=== PATIENT | male | born 1995 | race Caucasian/White ===

== ENCOUNTER 2017-01-31 05:59 | Emergency (ER) | payer OTHER ==
--- NOTE | 2017-01-31 07:01 | ED CLINICAL REPORT ---
Clinical Report - Physicians/Mid Levels [facility] [address] [place] [address] 01/31/2017 6:00 Patient: MICHELLE REID Time Seen: 06:04; initial patient contact. HISTORY OF PRESENT ILLNESS Chief Complaint: CHEST PAIN. This started about 4 days ago and is still present. The patient cannot recall the circumstances at the onset. It is described as burning and it is described as located in the central chest area and epigastric area. No radiation. At its maximum, severity described as moderate. When seen in the E.D., severity described as moderate. Modifying factors. Not worsened by anything. Not relieved by anything. No nausea, vomiting, difficulty breathing or diaphoresis. (Symptoms worse in the AM). Similar symptoms previously: None. Recent medical care: Not recently seen/assessed. REVIEW OF SYSTEMS No fever, chills, pedal edema or calf pain. He has had a cough. All systems otherwise negative, except as recorded above. PAST HISTORY Celiac Disease. Cynthia Thyroiditis. SURGERIES: Adenoidectomy. Appendectomy. Tonsillectomy. SOCIAL HISTORY Never smoker. History of drug use: marijuana. No alcohol use. ADDITIONAL NOTES The nursing notes have been reviewed. PHYSICAL EXAM Vital Signs: 01/31/2017 06:02 BP: 115/68. HR: 75. RR: 20. O2 saturation: 100%. Temp: 98.5 F. Pain level now: 8/10. Have been reviewed as normal. Appearance: Alert. Oriented X3. No acute distress. Eyes: Eyes normal inspection. ENT: Pharynx normal. CVS: Normal heart rate and rhythm. Heart sounds normal. Respiratory: No respiratory distress. Breath sounds normal. Chest nontender. Abdomen: Soft. Mild tenderness in the epigastric area. No guarding, rebound tenderness or Rodriguez's sign present. Bowel sounds normal. No organomegaly. No mass. Back: Normal external inspection. Skin: Skin warm and dry. Normal skin color. No rash. Extremities: No calf tenderness. No lower extremity edema. Neuro: Oriented X 3. No motor deficit. PROGRESS AND PROCEDURES Course of Care: The patient's symptoms are now gone. Physical exam findings are improved. GI Cocktail (institution's premix) and composed of viscous lidocaine, antacid and PO given. Sedative drug warning given to the patient and patient's family. Disposition: Discharged home in good and improved condition. Condition: good. CLINICAL IMPRESSION Gastroesophageal reflux disease with esophagitis. INSTRUCTIONS Do not work today. Avoid alcohol and NSAIDS. Examples of NSAIDS include aspirin, ibuprofen (Advil) and naproxen (Aleve). Avoid spicy foods. Your Current Medications: CONTINUE TAKING THE FOLLOWING MEDICATIONS: Synthroid Oral. Prescription Medications: Zantac 150 mg: take 1 orally every 12 hours. Dispense sixty (60). No refills. Substitution is permissible. Follow-up: Follow up with your doctor in about three days. Call for an appointment. Screening today revealed the patient's blood pressure to be in the normal range. (Electronically signed by Brennen Thurman Dr. 01/31/2017 8:54)
--- NOTE | 2017-01-31 07:01 | ED ORDER SUMMARY ---
..... Patient: MICHELLE REID OrderSheet [facility] VisitID: [id number] [address] [place] [address] 21y, M Registration Date/Time: 01/31/2017 ORDER SHEET Weight: 58.9 kg (stated) Allergies: May, GENERAL ORDERS: MEDICATION ORDERS: GI Cocktail RED PO 35 mL with Lidocaine Viscous Mouth/Throat 10 mL, Diphenhydramine Oral 10 mL, Maalox Plus Oral 15 mL (NOW) (06:14 01/31/2017 Radha Johnston) (Cancelled: Change in patient condition6:18 HSoule) GI Cocktail WHITE PO 30 mL with Lidocaine Viscous Mouth/Throat 15 mL, Maalox Plus Oral 15 mL (NOW) (06:18 01/31/2017 HSoule verbal order read back to Radha Johnston) (6:19 HSoule) Zofran ODT PO 4 mg (NOW) (06:21 01/31/2017 Radha Johnston) (6:29 HSoule) IV FLUIDS: ORDER SHEET NOTES: [Electronically signed by Brennen Thurman Dr. (08:54 01/31/2017)] [Electronically signed by Anu Mclain R.N. (15:58 01/31/2017)] [Electronically locked/signed by Anu Mclain R.N. (15:58 01/31/2017)]
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
--- NOTE | 2017-01-31 07:01 | ED CLINICAL REPORT ---
Clinical Report - Physicians/Mid Levels [facility] [address] [place] [address] 01/31/2017 6:00 Patient: MICHELLE REID Time Seen: 06:04; initial patient contact. HISTORY OF PRESENT ILLNESS Chief Complaint: CHEST PAIN. This started about 4 days ago and is still present. The patient cannot recall the circumstances at the onset. It is described as burning and it is described as located in the central chest area and epigastric area. No radiation. At its maximum, severity described as moderate. When seen in the E.D., severity described as moderate. Modifying factors. Not worsened by anything. Not relieved by anything. No nausea, vomiting, difficulty breathing or diaphoresis. (Symptoms worse in the AM). Similar symptoms previously: None. Recent medical care: Not recently seen/assessed. REVIEW OF SYSTEMS No fever, chills, pedal edema or calf pain. He has had a cough. All systems otherwise negative, except as recorded above. PAST HISTORY Celiac Disease. Cynthia Thyroiditis. SURGERIES: Adenoidectomy. Appendectomy. Tonsillectomy. SOCIAL HISTORY Never smoker. History of drug use: marijuana. No alcohol use. ADDITIONAL NOTES The nursing notes have been reviewed. PHYSICAL EXAM Vital Signs: 01/31/2017 06:02 BP: 115/68. HR: 75. RR: 20. O2 saturation: 100%. Temp: 98.5 F. Pain level now: 8/10. Have been reviewed as normal. Appearance: Alert. Oriented X3. No acute distress. Eyes: Eyes normal inspection. ENT: Pharynx normal. CVS: Normal heart rate and rhythm. Heart sounds normal. Respiratory: No respiratory distress. Breath sounds normal. Chest nontender. Abdomen: Soft. Mild tenderness in the epigastric area. No guarding, rebound tenderness or Rodriguez's sign present. Bowel sounds normal. No organomegaly. No mass. Back: Normal external inspection. Skin: Skin warm and dry. Normal skin color. No rash. Extremities: No calf tenderness. No lower extremity edema. Neuro: Oriented X 3. No motor deficit. PROGRESS AND PROCEDURES Course of Care: The patient's symptoms are now gone. Physical exam findings are improved. GI Cocktail (institution's premix) and composed of viscous lidocaine, antacid and PO given. Sedative drug warning given to the patient and patient's family. Disposition: Discharged home in good and improved condition. Condition: good. CLINICAL IMPRESSION Gastroesophageal reflux disease with esophagitis. INSTRUCTIONS Do not work today. Avoid alcohol and NSAIDS. Examples of NSAIDS include aspirin, ibuprofen (Advil) and naproxen (Aleve). Avoid spicy foods. Your Current Medications: CONTINUE TAKING THE FOLLOWING MEDICATIONS: Synthroid Oral. Prescription Medications: Zantac 150 mg: take 1 orally every 12 hours. Dispense sixty (60). No refills. Substitution is permissible. Follow-up: Follow up with your doctor in about three days. Call for an appointment. Screening today revealed the patient's blood pressure to be in the normal range. (Electronically signed by Brennen Thurman Dr. 01/31/2017 8:54)
--- NOTE | 2017-01-31 07:01 | ED ORDER SUMMARY ---
..... Patient: MICHELLE REID OrderSheet [facility] VisitID: [id number] [address] [place] [address] 21y, M Registration Date/Time: 01/31/2017 ORDER SHEET Weight: 58.9 kg (stated) Allergies: May, GENERAL ORDERS: MEDICATION ORDERS: GI Cocktail RED PO 35 mL with Lidocaine Viscous Mouth/Throat 10 mL, Diphenhydramine Oral 10 mL, Maalox Plus Oral 15 mL (NOW) (06:14 01/31/2017 Radha Johnston) (Cancelled: Change in patient condition6:18 HSoule) GI Cocktail WHITE PO 30 mL with Lidocaine Viscous Mouth/Throat 15 mL, Maalox Plus Oral 15 mL (NOW) (06:18 01/31/2017 HSoule verbal order read back to Radha Johnston) (6:19 HSoule) Zofran ODT PO 4 mg (NOW) (06:21 01/31/2017 Radha Johnston) (6:29 HSoule) IV FLUIDS: ORDER SHEET NOTES: [Electronically signed by Brennen Thurman Dr. (08:54 01/31/2017)] [Electronically signed by Anu Mclain R.N. (15:58 01/31/2017)] [Electronically locked/signed by Anu Mclain R.N. (15:58 01/31/2017)]
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
--- NOTE | 2017-01-31 15:58 | ED MED RECONCILIATION SUMMARY ---
Patient: MICHELLE REID Medication Reconciliation Report [facility] VisitID: [id number] [address] [place] [address] 21y, M Registration Date/Time: 01/31/2017 Weight: 58.9 kg Height/Length: 68 in. BMI: 19.7 ALLERGIES: Aug, Augment The patient's Home Medications are listed below: CONTINUE TAKING THE FOLLOWING MEDICATIONS: Synthroid Oral The source(s) of the original Home Medication information: patient The following Medications were given to the patient in the Emergency Department: GI COCKTAIL WHITE [PO] PO 30 mL, administered: 01/31/2017 6:18:00 AM Zofran ODT [PO] PO 4 mg, administered: 01/31/2017 6:29:00 AM The following Medications were prescribed to the patient: Zantac 150 mg: take 1 orally every 12 hours. Dispense sixty (60). No refills. Substitution is permissible. -- Brennen Thurman Dr.
--- NOTE | 2017-01-31 15:58 | ED DISCHARGE INSTRUCTIONS ---
Patient: MICHELLE REID General Instructions [facility] VisitID: [id number] [place] [address] 21y, M Registration Date/Time: 01/31/2017 Gastroesophageal reflux disease with esophagitis. INSTRUCTIONS Do not work today. Avoid alcohol and NSAIDS. Examples of NSAIDS include aspirin, ibuprofen (Advil) and naproxen (Aleve). Avoid spicy foods. Your Current Medications: CONTINUE TAKING THE FOLLOWING MEDICATIONS: Synthroid Oral. Prescription Medications: Zantac 150 mg: take 1 orally every 12 hours. Dispense sixty (60). No refills. Substitution is permissible. Follow-up: Follow up with your doctor in about three days. Call for an appointment. Screening today revealed the patient's blood pressure to be in the normal range. ADDITIONAL INFORMATION GERD (Adult) The esophagus is a tube that carries food from the mouth to the stomach. A valve at the lower end of the esophagus prevents stomach acid from flowing upward. If this valve does not work properly, acid from the stomach enters the esophagus. If this occurs over and over, the acid will injure the lining of the esophagus. This condition is called GERD (gastroesophageal reflux disease) or acid reflux. When stomach acid flows upward into the esophagus, it causes burning, pressure or sharp pain in the upper abdomen or mid to lower chest. The pain can spread to the neck, back, or shoulder, similar to heart pain (angina). There may be belching, an acid taste in the back of the throat, chronic cough, or sore throat or hoarseness. GERD symptoms often occur during the day after a big meal, but it can also occur at night when lying down. Smoking,as well as drinking alcohol, increases the risk of GERD. GERD is a chronic condition. Once it begins, it is often lifelong. Treatment includes changes in eating habits and the use of acid ata medications to decrease the amount of acid in the stomach. Symptoms often improve with treatment, but if treatment is stopped, the symptoms usually return after a few months. So most persons with GERD will need to continue treatment. Home Care: Take the prescribed acid ata medication for the full course of treatment even if you begin to feel better sooner. This medication can take up to several days to fully control your symptoms. If you cant afford the prescribed medication, you can try vaqg-eso-dablxvy acid blockers, such as Pepcid AC, Tagamet, Zantac, or Aciphex. If these do not relieve your symptoms, a stronger acid-ata can be tried, such as Prilosec OTC. You can use antacids, such as Tums, Rolaids, Mylanta, or Maalox, for pain. This will be useful the first few days after starting acid blockers when the blockers havent started working yet. Follow the directions on the label. Liquid antacids may work better than tablets. Note that antacids can interfere with absorption of certain medications. Specifically, do not take Tagamet (cimetidine), Zantac (ranitidine), or Carafate (sucralfate) within 1 hour of taking an antacid. Talk with your pharmacist if you have any questions. Limit or avoid fatty, fried, and spicy foods, as well as coffee, chocolate, mint, and foods with high acid content such as tomatoes and citrus fruit and juices (orange, grapefruit, lemon). Avoid alcohol and smoking. Dont eat large meals, especially at night. Frequent, smaller meals are best. Do not lie down right after eating. And dont eat anything 3 hours before going to bed. If you are overweight, losing weight will reduce symptoms. Women should not wear corsets or girdles because this increases pressure on the stomach and worsens reflux. If your symptoms occur during sleep, use a foam wedge to elevate your upper body (not just your head.) Or, place 4" blocks under the head of your bed. Follow Up with your doctor or as advised by our staff. Further testing may be needed. If you do not begin to improve over the next 4 days, contact your doctor. If you had an x-ray, CT scan, or ECG (electrocardiogram), it will be reviewed by a specialist. Youll be notified of any new findings that affect your care. Get Prompt Medical Attention if any of the following occur: Stomach pain gets worse or moves to the lower right abdomen (appendix area) Chest pain appears or gets worse, or spreads to the back, neck, shoulder, or arm Frequent vomiting (cant keep down liquids) Blood in the stool or vomit (red or black in color) Feeling weak or dizzy, fainting, or trouble breathing Fever of 100.4F (38C) or higher, or as directed by your healthcare provider [place] Diet A bland diet is used for patients with an upset stomach. It consists of foods that are mild and easy to digest. It is better to eat small frequent meals rather than three large meals a day. BEVERAGES OK: Fruit juices, non-caffeinated teas and coffee, non-carbonated [place] AVOID: Carbonated beverage, caffeinated tea and coffee, all alcoholic beverages BREAD OK: Refined white, wheat or rye bread, royal or soda crackers, [place] toast, plain rolls, bagels AVOID: Whole-grain bread CEREAL OK: Refined cereals: cooked or ready to eat AVOID: Whole grain cereals and granola, or those containing bran, seeds or nuts DESSERTS OK: Peanut butter and all others except those to "avoid" AVOID: Chocolate, cocoa, coconut, popcorn, nuts, seeds, jam, marmalade FRUITS OK: Canned, cooked, frozen or fresh fruits without seeds or tough skin AVOID: Olives, skin and seeds of fruit MEATS OK: All fresh or preserved meat, fish and fowl AVOID: Any that are prepared with those spices to "avoid" CHEESE & EGGS OK: Eggs, cottage cheese, cream cheese, other cheeses AVOID: All cheeses made with those spices to "avoid" POTATOES & PASTA OK: Potato, rice, macaroni, noodles, spaghetti AVOID: None SOUPS OK: All soups without heavy seasoning AVOID: Soups made with those spices to "avoid" VEGETABLES OK: Canned, cooked, fresh or frozen mildly flavored vegetables without seeds, skins or coarse fiber AVOID: Vegetables prepared with those spices to "avoid"; skin and seeds of vegetables and those with coarse fiber SPICES OK: Salt, lemon and [place] juice, vinegar, all extracts, lalita, cinnamon, thyme, mace, allspice, paprika AVOID: [place] powder, cloves, pepper, seed spices, garlic, gravy pickles, highly seasoned salad dressings Ranitidine Hydrochloride Oral tablet What is this medicine? RANITIDINE (ra ALDEN lantigua) is a type of antihistamine that blocks the release of stomach acid. It is used to treat stomach or intestinal ulcers. It can relieve ulcer pain and discomfort, and the heartburn from acid reflux. How should I use this medicine? Take this medicine by mouth with a glass of water. Follow the directions on the prescription label. If you only take this medicine once a day, take it at bedtime. Take your medicine at regular intervals. Do not take your medicine more often than directed. Do not stop taking except on your doctor's advice. Talk to your correctional facility psychiatrist regarding the use of this medicine in children. Special care may be needed. What side effects may I notice from receiving this medicine? Side effects that you should report to your doctor or health child care leader as soon as possible: agitation, nervousness, depression, hallucinations allergic reactions like skin rash, itching or hives, swelling of the face, lips, or tongue breast enlargement in both males and females breathing problems redness, blistering, peeling or loosening of the skin, including inside the mouth unusual bleeding or bruising unusually weak or tired vomiting yellowing of the skin or eyes Side effects that usually do not require medical attention (report to your doctor or health child care leader if they continue or are bothersome): constipation or diarrhea dizziness headache nausea What may interact with this medicine? atazanavir delavirdine gefitinib glipizide ketoconazole midazolam procainamide propantheline triazolam warfarin What if I miss a dose? If you miss a dose, take it as soon as you can. If it is almost time for your next dose, take only that dose. Do not take double or extra doses. Where should I keep my medicine? Keep out of the reach of children. Store at room temperature between 15 and 30 degrees C (59 and 86 degrees F). Protect from light and moisture. Keep container tightly closed. Throw away any unused medicine after the expiration date. What should I tell my health care provider before I take this medicine? They need to know if you have any of these conditions: kidney disease liver disease porphyria an unusual or allergic reaction to ranitidine, other medicines, foods, dyes, or preservatives or trying to get breast-feeding What should I watch for while using this medicine? Tell your doctor or health child care leader if your condition does not start to get better or gets worse. You may need to take this medicine for several days as prescribed before your symptoms get better. Finish the full course of tablets prescribed, even if you feel better. Do not smoke cigarettes or drink alcohol. These increase irritation in your stomach and can lengthen the time it will take for ulcers to heal. Cigarettes and alcohol can also make acid reflux or heartburn worse. If you get black, tarry stools or vomit up what looks like coffee grounds, call your doctor or health child care leader at once. You may have a bleeding ulcer. You have been given the following additional information: GERD (Adult) Diet, [place] (Adult) Ranitidine Hydrochloride Oral tablet Do not work today. (Electronically signed by Brennen Thurman Dr. 01/31/2017 8:54)
--- NOTE | 2017-01-31 15:58 | ED MAR SUMMARY ---
..... Medication Administration Record [facility] [address] [place] [address] Patient: MICHELLE REID Visit ID: [id number] 21y, M Weight: 58.9 kg Height/Length: 68 in BMI: 19.7 ALLERGIES: May, Augment Given 06:18 01/31/2017 Jacquelin Roa, Medication Administered: GI COCKTAIL WHITE [PO] (SIMETHICONE), Dose: 30 mL Oral Suspension PO. Medication Ordered: GI Cocktail WHITE PO 30 mL with Lidocaine Viscous Mouth/Throat 15 mL, Maalox Plus Oral 15 mL (NOW). Given 06:29 01/31/2017 Jacquelin Roa, Medication Administered: ZOFRAN ODT [PO] (ONDANSETRON), Dose: 4 mg Oral Disintegrating Tablets PO. Medication Ordered: Zofran ODT PO 4 mg (NOW).
--- NOTE | 2017-01-31 15:58 | ED DISCHARGE INSTRUCTIONS ---
Patient: MICHELLE REID General Instructions [facility] VisitID: [id number] [place] [address] 21y, M Registration Date/Time: 01/31/2017 Gastroesophageal reflux disease with esophagitis. INSTRUCTIONS Do not work today. Avoid alcohol and NSAIDS. Examples of NSAIDS include aspirin, ibuprofen (Advil) and naproxen (Aleve). Avoid spicy foods. Your Current Medications: CONTINUE TAKING THE FOLLOWING MEDICATIONS: Synthroid Oral. Prescription Medications: Zantac 150 mg: take 1 orally every 12 hours. Dispense sixty (60). No refills. Substitution is permissible. Follow-up: Follow up with your doctor in about three days. Call for an appointment. Screening today revealed the patient's blood pressure to be in the normal range. ADDITIONAL INFORMATION GERD (Adult) The esophagus is a tube that carries food from the mouth to the stomach. A valve at the lower end of the esophagus prevents stomach acid from flowing upward. If this valve does not work properly, acid from the stomach enters the esophagus. If this occurs over and over, the acid will injure the lining of the esophagus. This condition is called GERD (gastroesophageal reflux disease) or acid reflux. When stomach acid flows upward into the esophagus, it causes burning, pressure or sharp pain in the upper abdomen or mid to lower chest. The pain can spread to the neck, back, or shoulder, similar to heart pain (angina). There may be belching, an acid taste in the back of the throat, chronic cough, or sore throat or hoarseness. GERD symptoms often occur during the day after a big meal, but it can also occur at night when lying down. Smoking,as well as drinking alcohol, increases the risk of GERD. GERD is a chronic condition. Once it begins, it is often lifelong. Treatment includes changes in eating habits and the use of acid ata medications to decrease the amount of acid in the stomach. Symptoms often improve with treatment, but if treatment is stopped, the symptoms usually return after a few months. So most persons with GERD will need to continue treatment. Home Care: Take the prescribed acid ata medication for the full course of treatment even if you begin to feel better sooner. This medication can take up to several days to fully control your symptoms. If you cant afford the prescribed medication, you can try quqi-sxy-yjkdxua acid blockers, such as Pepcid AC, Tagamet, Zantac, or Aciphex. If these do not relieve your symptoms, a stronger acid-ata can be tried, such as Prilosec OTC. You can use antacids, such as Tums, Rolaids, Mylanta, or Maalox, for pain. This will be useful the first few days after starting acid blockers when the blockers havent started working yet. Follow the directions on the label. Liquid antacids may work better than tablets. Note that antacids can interfere with absorption of certain medications. Specifically, do not take Tagamet (cimetidine), Zantac (ranitidine), or Carafate (sucralfate) within 1 hour of taking an antacid. Talk with your pharmacist if you have any questions. Limit or avoid fatty, fried, and spicy foods, as well as coffee, chocolate, mint, and foods with high acid content such as tomatoes and citrus fruit and juices (orange, grapefruit, lemon). Avoid alcohol and smoking. Dont eat large meals, especially at night. Frequent, smaller meals are best. Do not lie down right after eating. And dont eat anything 3 hours before going to bed. If you are overweight, losing weight will reduce symptoms. Women should not wear corsets or girdles because this increases pressure on the stomach and worsens reflux. If your symptoms occur during sleep, use a foam wedge to elevate your upper body (not just your head.) Or, place 4" blocks under the head of your bed. Follow Up with your doctor or as advised by our staff. Further testing may be needed. If you do not begin to improve over the next 4 days, contact your doctor. If you had an x-ray, CT scan, or ECG (electrocardiogram), it will be reviewed by a specialist. Youll be notified of any new findings that affect your care. Get Prompt Medical Attention if any of the following occur: Stomach pain gets worse or moves to the lower right abdomen (appendix area) Chest pain appears or gets worse, or spreads to the back, neck, shoulder, or arm Frequent vomiting (cant keep down liquids) Blood in the stool or vomit (red or black in color) Feeling weak or dizzy, fainting, or trouble breathing Fever of 100.4F (38C) or higher, or as directed by your healthcare provider [place] Diet A bland diet is used for patients with an upset stomach. It consists of foods that are mild and easy to digest. It is better to eat small frequent meals rather than three large meals a day. BEVERAGES OK: Fruit juices, non-caffeinated teas and coffee, non-carbonated [place] AVOID: Carbonated beverage, caffeinated tea and coffee, all alcoholic beverages BREAD OK: Refined white, wheat or rye bread, royal or soda crackers, [place] toast, plain rolls, bagels AVOID: Whole-grain bread CEREAL OK: Refined cereals: cooked or ready to eat AVOID: Whole grain cereals and granola, or those containing bran, seeds or nuts DESSERTS OK: Peanut butter and all others except those to "avoid" AVOID: Chocolate, cocoa, coconut, popcorn, nuts, seeds, jam, marmalade FRUITS OK: Canned, cooked, frozen or fresh fruits without seeds or tough skin AVOID: Olives, skin and seeds of fruit MEATS OK: All fresh or preserved meat, fish and fowl AVOID: Any that are prepared with those spices to "avoid" CHEESE & EGGS OK: Eggs, cottage cheese, cream cheese, other cheeses AVOID: All cheeses made with those spices to "avoid" POTATOES & PASTA OK: Potato, rice, macaroni, noodles, spaghetti AVOID: None SOUPS OK: All soups without heavy seasoning AVOID: Soups made with those spices to "avoid" VEGETABLES OK: Canned, cooked, fresh or frozen mildly flavored vegetables without seeds, skins or coarse fiber AVOID: Vegetables prepared with those spices to "avoid"; skin and seeds of vegetables and those with coarse fiber SPICES OK: Salt, lemon and [place] juice, vinegar, all extracts, lalita, cinnamon, thyme, mace, allspice, paprika AVOID: [place] powder, cloves, pepper, seed spices, garlic, gravy pickles, highly seasoned salad dressings Ranitidine Hydrochloride Oral tablet What is this medicine? RANITIDINE (ra ALDEN lantigua) is a type of antihistamine that blocks the release of stomach acid. It is used to treat stomach or intestinal ulcers. It can relieve ulcer pain and discomfort, and the heartburn from acid reflux. How should I use this medicine? Take this medicine by mouth with a glass of water. Follow the directions on the prescription label. If you only take this medicine once a day, take it at bedtime. Take your medicine at regular intervals. Do not take your medicine more often than directed. Do not stop taking except on your doctor's advice. Talk to your summer camp counselor regarding the use of this medicine in children. Special care may be needed. What side effects may I notice from receiving this medicine? Side effects that you should report to your doctor or health animal care assistant as soon as possible: agitation, nervousness, depression, hallucinations allergic reactions like skin rash, itching or hives, swelling of the face, lips, or tongue breast enlargement in both males and females breathing problems redness, blistering, peeling or loosening of the skin, including inside the mouth unusual bleeding or bruising unusually weak or tired vomiting yellowing of the skin or eyes Side effects that usually do not require medical attention (report to your doctor or health animal care assistant if they continue or are bothersome): constipation or diarrhea dizziness headache nausea What may interact with this medicine? atazanavir delavirdine gefitinib glipizide ketoconazole midazolam procainamide propantheline triazolam warfarin What if I miss a dose? If you miss a dose, take it as soon as you can. If it is almost time for your next dose, take only that dose. Do not take double or extra doses. Where should I keep my medicine? Keep out of the reach of children. Store at room temperature between 15 and 30 degrees C (59 and 86 degrees F). Protect from light and moisture. Keep container tightly closed. Throw away any unused medicine after the expiration date. What should I tell my health care provider before I take this medicine? They need to know if you have any of these conditions: kidney disease liver disease porphyria an unusual or allergic reaction to ranitidine, other medicines, foods, dyes, or preservatives or trying to get breast-feeding What should I watch for while using this medicine? Tell your doctor or health animal care assistant if your condition does not start to get better or gets worse. You may need to take this medicine for several days as prescribed before your symptoms get better. Finish the full course of tablets prescribed, even if you feel better. Do not smoke cigarettes or drink alcohol. These increase irritation in your stomach and can lengthen the time it will take for ulcers to heal. Cigarettes and alcohol can also make acid reflux or heartburn worse. If you get black, tarry stools or vomit up what looks like coffee grounds, call your doctor or health animal care assistant at once. You may have a bleeding ulcer. You have been given the following additional information: GERD (Adult) Diet, [place] (Adult) Ranitidine Hydrochloride Oral tablet Do not work today. (Electronically signed by Brennen Thurman Dr. 01/31/2017 8:54)
--- NOTE | 2017-01-31 15:58 | ED MED RECONCILIATION SUMMARY ---
Patient: MICHELLE REID Medication Reconciliation Report [facility] VisitID: [id number] [address] [place] [address] 21y, M Registration Date/Time: 01/31/2017 Weight: 58.9 kg Height/Length: 68 in. BMI: 19.7 ALLERGIES: Aug, Augment The patient's Home Medications are listed below: CONTINUE TAKING THE FOLLOWING MEDICATIONS: Synthroid Oral The source(s) of the original Home Medication information: patient The following Medications were given to the patient in the Emergency Department: GI COCKTAIL WHITE [PO] PO 30 mL, administered: 01/31/2017 6:18:00 AM Zofran ODT [PO] PO 4 mg, administered: 01/31/2017 6:29:00 AM The following Medications were prescribed to the patient: Zantac 150 mg: take 1 orally every 12 hours. Dispense sixty (60). No refills. Substitution is permissible. -- Brennen Thurman Dr.
--- NOTE | 2017-01-31 15:58 | ED MAR SUMMARY ---
..... Medication Administration Record [facility] [address] [place] [address] Patient: MICHELLE REID Visit ID: [id number] 21y, M Weight: 58.9 kg Height/Length: 68 in BMI: 19.7 ALLERGIES: May, Augment Given 06:18 01/31/2017 Jacquelin Roa, Medication Administered: GI COCKTAIL WHITE [PO] (SIMETHICONE), Dose: 30 mL Oral Suspension PO. Medication Ordered: GI Cocktail WHITE PO 30 mL with Lidocaine Viscous Mouth/Throat 15 mL, Maalox Plus Oral 15 mL (NOW). Given 06:29 01/31/2017 Jacquelin Roa, Medication Administered: ZOFRAN ODT [PO] (ONDANSETRON), Dose: 4 mg Oral Disintegrating Tablets PO. Medication Ordered: Zofran ODT PO 4 mg (NOW).
== END 2017-01-31 07:21 | disposition home or self-care (01) ==
LOC: ED SRH 05:59
DX: K21.0 Gastro-esophageal reflux disease with esophagitis (principal); K90.0 Celiac disease; Z79.899 Other long term (current) drug therapy; Z88.1 Allergy status to other antibiotic agents